=== PATIENT | male | born 1985 | race African-American/Black ===

== ENCOUNTER 2018-11-16 16:35 | Emergency (ER) | payer OTHER ==
[~2018-11-16] VITALS: Ht 177.8 cm; Wt 104.3 kg
[2018-11-16] MEDS ORDERED: MOBIC15 MG PO (18:01)
[2018-11-16] MEDS ORDERED: NORFLEX100 MG PO (18:01)
[2018-11-16 18:30] VITALS: BP 129/74
== END 2018-11-16 18:30 | disposition home or self-care (01) ==
LOC: ER 16:35
DX: S39.012A Strain of muscle, fascia and tendon of lower back, initial encounter (principal); W17.89XA Other fall from one level to another, initial encounter; Y93.89 Activity, other specified; Y92.096 Garden or yard of other non-institutional residence as the place of occurrence of the external cause; Y99.8 Other external cause status